=== PATIENT | female | born 1965 | race Caucasian/White ===

== ENCOUNTER 2018-11-23 00:40 | Inpatient (IN) | payer OTHER ==
[2018-11-23 01:27] LABS: ALT (SGPT) 23 U/L (8-55); AST (SGOT) 29 U/L (5-34); Albumin 4.1 g/dL (3.5-5.0); Alkaline Phosphatase 89 U/L (40-110); Anion Gap 19 mmol/L (10-20); BUN (Urea Nitrogen) 12 mg/dL (9.8-20.1); Bilirubin, Total 0.6 mg/dL (0.2-1.2); Calc. Creatinine Clearance 0 mL/min (70-130); Carbon Dioxide 16 mmol/L (22-29); Chloride 104 mmol/L (98-107); Estimated GFR-MDRD 50; Globulin 2.7 g/dL (2.4-3.5); Glucose 271 mg/dL (70-105); Potassium 3.8 mmol/L (3.5-5.1); Protein, Total 6.8 g/dL (6.0-8.3); Sodium 135 mmol/L (136-145)
[2018-11-23] MEDS ORDERED: Ondansetron PF 4 MG/2 ML Vial ONE (01:56)
[2018-11-23] MEDS ORDERED: Ondansetron ODT 4 MG TAB SL PRN (04:09)
[2018-11-23] MEDS ORDERED: Ondansetron PF 4 MG/2 ML Vial IVP PRN (04:09)
[2018-11-23 04:34] VITALS: BMI 29.5
[2018-11-23] MEDS ORDERED: Sodium Chloride 0.9% 1,000 ML IV SCH (07:00)
[2018-11-23] MEDS ORDERED: Dextrose 50% Abboject 50 ML SYRINGE SLOW IVP PRN ×2 (07:39→16:43)
[2018-11-23] MEDS ORDERED: Dextrose 5% in Water 1,000 ML IV PRN (07:39)
[2018-11-23] MEDS ORDERED: NS 0.9% w/ 20 MEQ KCL 1,000 ML IV SCH (08:00)
[2018-11-23] MEDS: NS 0.9% w/ 20 MEQ KCL 1,000 ML/1,000 ML BAG IV SCH ×2 (08:33→16:22)
[2018-11-23] MEDS: Enoxaparin Sodium 30 MG/0.3 ML SYRINGE SC SCH (08:33)
[2018-11-23 09:35] LABS: Anion Gap 19 mmol/L (10-20); BUN (Urea Nitrogen) 11 mg/dL (9.8-20.1); Calc. Creatinine Clearance 78 mL/min (70-130); Carbon Dioxide 12 mmol/L (22-29); Chloride 102 mmol/L (98-107); Estimated GFR-MDRD 50; Glucose 317 mg/dL (70-105); Potassium 3.7 mmol/L (3.5-5.1); Sodium 129 mmol/L (136-145)
--- NOTE | 2018-11-23 12:13 | ULT ---
ABDOMINAL ULTRASOUND: Date: 11/23/18 HISTORY: Abdominal pain. FINDINGS: Real-time imaging of the upper abdomen shows echogenic foci with shadowing within the gallbladder com patible with small stones. Common duct is 4 mm. The liver shows increased echogenicity with areas of focal fatty sparing adjacent to the gallbladder. The spleen measures 11 cm. Right and left kidneys are within normal limits of size and not obstructed. The pancreas is obscured. Abdominal aorta and IVC regions appear unremarkable. IMPRESSION: 1. Technically difficult examination due to patient cooperation and bowel gas. 2. Multiple cholelithiasis with a normal caliber common duct. 3. Fatty change of the liver, with a spleen which is upper limits of normal in size. POS: [facility]
[2018-11-23] MEDS: Promethazine HCl 12.5 MG in Sodium Chloride 0.9% 50 ML IVPB PRN ×2 (12:52→19:46)
--- NOTE | 2018-11-23 13:32 | HP ---
CHIEF COMPLAINTS: Nausea, vomiting, and diarrhea. HISTORY OF PRESENT ILLNESS: The patient is a 53-year-old female, who was seen by [facility] in [place] yesterday for 5-day history of nausea, vomiting, and diarrhea. Apparently, she stopped taking her diabetic medications long time ago, more than 6 months. She was still taking her other medications, but she stopped taking all diabetic medications. She was on pills. She was not on any insulin before that. She complained about some chills, but no fever. She had diarrhea. No blood in her stool. She had some abdominal pain, but this was mainly in the epigastric area and related to her vomiting most likely, she said. She received 10 units of insulin and IV fluids in both emergency rooms in [place] and [facility] in [place]. Her anion gap was up to 27 and on the last BMP, it is 19. She still has some nausea and vomiting. PAST MEDICAL HISTORY: 1. Diabetes mellitus type 2. 2. Gastroesophageal reflux disease. 3. Fibromyalgia. 4. Bipolar disorder. SURGICAL HISTORY: 1. Endometriosis surgeries. 2. Appendectomy. 3. Hysterectomy. 4. Gastric sleeve surgery. SOCIAL HISTORY: She drinks 3 to 4 drinks, probably 3 to 4 times per week. She uses marijuana when the muscle pain gets to the point that she can not handle her pain anymore, sometimes it is daily. She does not use any cigarettes. She does not use any other drugs. FAMILY HISTORY: Mother of [place] when she was 65. Father is still alive. He had heart transplant. ALLERGIES: NONE. CURRENT MEDICATIONS: The patient does not know her medications. We are going to contact her primary care physician, Dr. Robles from [place] to find out what she is taking. REVIEW OF SYSTEMS: All 14 systems were reviewed and they are negative except for those symptoms mentioned in HPI. PHYSICAL EXAMINATION: VITAL SIGNS: Blood pressure is 163/84, pulse is 68, temperature is 97.8, respirations 16, O2 saturation is 99. HEENT: Head is atraumatic and normocephalic. Eyes are PERRLA. Sclerae are nonicteric. Oral mucosa is dry. NECK: Supple. LUNGS: Clear. HEART: S1, S2 normal. ABDOMEN: Soft. Slightly tender in the epigastric area. No guarding. No masses. EXTREMITIES: No clubbing, cyanosis, or edema. NEUROLOGICAL EXAMINATION: She follows my commands. She moves all 4 extremities. There is no any sensory or motor deficits present. Cranial nerves are intact. LABORATORY DATA: Showed sodium of 135, potassium 3.8, chloride 104, CO2 16, BUN is 12, creatinine 1.13, glucose 271, and glycemia is ranging from 253 to 268. The rest of chemistry is within normal limits. CBC within normal limits. Urinalysis showed 100 of protein, 500 of glucose,, more or equal 80 of ketones, moderate of blood, moderate of bilirubin, RBCs 4 to 6, granular casts usually is 0 to 3. Her blood gas showed venous blood, pCO2 18.6, PO2 37.8, base excess -10.7, AST 35, ALT 30, alkaline phosphatase 113, lipase 19. Troponin I less than 0.010. Her previous creatinine from [place] was 1.35, and potassium was 3.1. IMPRESSION: 1. Diabetic ketoacidosis. 2. Diarrhea with fever. We will check her for any infectious etiology of that. 3. Renal insufficiency, most likely prerenal because it is improving with IV fluids so far. 4. Bipolar disorder. 5. Drug abuser. 6. Fibromyalgia. 7. Hypokalemia, corrected. PLAN: We are going to admit her to full admission medical floor. Condition is fair. Activity, bedrest and bathroom privileges. IV fluids with normal saline with KCl 20 mEq/L at 150 mL/h. Accu-Cheks every 4 hours. Moderate sliding scale. Comp every 4 hours x2. Zofran p.r.n. as needed. Phenergan p.r.n. as needed for nausea and vomiting. We will find out her home medications she is taking at home by calling doctor's office. We will keep her on fluids and monitor her progress. She will be on DVT prophylaxis with SCDs and heparin. Job ID: [id number]
[2018-11-23 13:57] LABS: Anion Gap 18 mmol/L (10-20); BUN (Urea Nitrogen) 11 mg/dL (9.8-20.1); Calc. Creatinine Clearance 83 mL/min (70-130); Calcium 8.5 mg/dL (7.8-10.44); Carbon Dioxide 10 mmol/L (22-29); Chloride 108 mmol/L (98-107); Estimated GFR-MDRD 54; Glucose 299 mg/dL (70-105); Potassium 4.3 mmol/L (3.5-5.1); Sodium 132 mmol/L (136-145)
[2018-11-23] MEDS ORDERED: Sodium Chloride 0.9% 1,000 ML IV PRN ×4 (16:35)
[2018-11-23] MEDS ORDERED: Dextrose 5 %-0.45 % NaCl 1,000 ML IV PRN (16:35)
[2018-11-23] MEDS ORDERED: NS 0.9% w/ 20 MEQ KCL 1,000 ML/1,000 ML BAG IV PRN ×2 (16:35)
[2018-11-23] MEDS ORDERED: Calcium Carbonate 500 MG TAB PO PRN (16:44)
[2018-11-23] MEDS ORDERED: Magnesium 2 GM/50 ML 2 GM in Premix Bag 1 BAG IVPB SCH (16:44)
[2018-11-23] MEDS ORDERED: PHOS-NAK 1 PKT PACK PO PRN ×2 (16:44)
[2018-11-23] MEDS ORDERED: NON-CRITICAL ELECTROLYTE REPLACEMENT PROTOCOL FS PRN (16:44)
[2018-11-23] MEDS ORDERED: Magnesium Oxide 400 MG TAB PO PRN ×2 (16:44)
[2018-11-23] MEDS ORDERED: Potassium Chloride 40 MEQ in Premix Bag 1 BAG IVPB PRN (16:45)
[2018-11-23] MEDS ORDERED: Potassium Chloride 20 MEQ in Premix Bag 1 BAG IVPB PRN (16:45)
[2018-11-23] MEDS ORDERED: HUMULIN R 100 UNITS in Sodium Chloride 0.9% 100 ML IVPB SCH (16:45)
[2018-11-23] MEDS ORDERED: ADD ELECTROLYTE REPLACEMENT SET TO PROFILE FS SCH (16:45)
[2018-11-23] MEDS ORDERED: Potassium Chloride 20 MEQ TAB PO PRN (16:45)
[2018-11-23] MEDS ORDERED: Calcium Gluconate 9.2 MEQ in Sodium Chloride 0.9% 100 ML IVPB PRN (16:45)
[2018-11-23] MEDS ORDERED: Insulin Regular 300 UNITS/3 ML VIAL IVP SCH (16:45)
[2018-11-23] MEDS ORDERED: Potassium Phosphate 9 MMOL in Sodium Chloride 0.9% 100 ML IVPB PRN (16:46)
[2018-11-23] MEDS ORDERED: Potassium Phosphate 15 MMOL in Sodium Chloride 0.9% 250 ML 250 ML IVPB PRN (16:46)
[2018-11-23] MEDS ORDERED: Potassium Phosphate 12 MMOL in Sodium Chloride 0.9% 100 ML IVPB PRN (16:46)
[2018-11-23 20:16] LABS: Anion Gap 14 mmol/L (10-20); BUN (Urea Nitrogen) 10 mg/dL (9.8-20.1); Calc. Creatinine Clearance 100 mL/min (70-130); Calcium 8.9 mg/dL (7.8-10.44); Carbon Dioxide 12 mmol/L (22-29); Chloride 111 mmol/L (98-107); Estimated GFR-MDRD 67; Glucose 142 mg/dL (70-105); Potassium 3.3 mmol/L (3.5-5.1); Sodium 134 mmol/L (136-145)
[2018-11-23] MEDS: D5 1/2 NS w/20 mEq KCL 1,000 ML IV PRN (22:22)
[2018-11-23] MEDS: Potassium Chloride 20 MEQ in Premix Bag 1 BAG IVPB PRN (22:25)
[2018-11-23] MEDS ORDERED: Promethazine HCl 25 MG/ML VIAL IM/IV PRN (23:07)
[2018-11-23] MEDS ORDERED: diphenhydrAMINE 50 MG/ML VIAL IVP PRN (23:08)
[2018-11-24] MEDS: NS 0.9% w/ 20 MEQ KCL 1,000 ML/1,000 ML BAG IV SCH ×4 (00:25→15:03)
[2018-11-24 00:26] LABS: Anion Gap 14 mmol/L (10-20); BUN (Urea Nitrogen) 8 mg/dL (9.8-20.1); Calc. Creatinine Clearance 98 mL/min (70-130); Calcium 8.8 mg/dL (7.8-10.44); Carbon Dioxide 12 mmol/L (22-29); Chloride 113 mmol/L (98-107); Estimated GFR-MDRD 65; Glucose 190 mg/dL (70-105); Potassium 3.6 mmol/L (3.5-5.1); Sodium 135 mmol/L (136-145)
[2018-11-24] MEDS: Potassium Chloride 20 MEQ in Premix Bag 1 BAG IVPB PRN (01:10)
[2018-11-24] MEDS ORDERED: diphenhydrAMINE 50 MG/ML VIAL ONE (02:52)
[2018-11-24] MEDS: D5 1/2 NS w/20 mEq KCL 1,000 ML IV PRN ×2 (03:10→08:47)
[2018-11-24] MEDS: Promethazine HCl 12.5 MG in Sodium Chloride 0.9% 50 ML IVPB PRN ×2 (03:11→08:48)
[2018-11-24 07:11] LABS: Anion Gap 12 mmol/L (10-20); BUN (Urea Nitrogen) 7 mg/dL (9.8-20.1); Calc. Creatinine Clearance 90 mL/min (70-130); Calcium 9.1 mg/dL (7.8-10.44); Carbon Dioxide 16 mmol/L (22-29); Chloride 112 mmol/L (98-107); Estimated GFR-MDRD 63; Glucose 192 mg/dL (70-105); Potassium 3.9 mmol/L (3.5-5.1); Sodium 136 mmol/L (136-145)
[2018-11-24 08:33] LABS: #Lymphocytes 2.3 thou/uL (1.20-3.40); #Monocytes 0.4 thou/uL (0.11-0.59); #Neutrophils 3.8 thou/uL (1.40-6.50); %Basophils 0.6 % (0.0-1.0); %Eosinophils 0.2 % (0.0-10.0); %Lymphocytes 35.1 % (21.0-51.0); %Monocytes 5.7 % (0.0-10.0); %Neutrophils 58.4 % (42.0-75.0); Hemoglobin 12.9 g/dL (12.0-16.0); Mean Corpuscular HGB CONC 35.3 g/dL (32.0-36.0); Mean Corpuscular Volume 90.5 fL (78.0-98.0); Mean Platelet Volume 7.1 fL (7.4-10.4); Platelet Count 199 thou/uL (130-400); RBC Distribution Width 13.3 % (11.5-14.5); Red Blood Cell (RBC) Count 4.05 mill/uL (4.20-5.40); White Blood Cell (WBC) Count 6.5 thou/uL (4.8-10.8)
[2018-11-24] MEDS: Enoxaparin Sodium 30 MG/0.3 ML SYRINGE SC SCH (08:47)
--- NOTE | 2018-11-24 08:53 | PRG ---
DATE OF SERVICE: 11/24/2018 SUBJECTIVE: The patient is seen and examined at the bedside. She is still nauseated and has some vomiting last night. She has some abdominal pain, but she thinks this is most likely from her vomiting. OBJECTIVE: VITAL SIGNS: Blood pressure is 167/97, pulse is 62, respiratory rate is 13, O2 saturation is good. HEENT: Head is atraumatic and normocephalic. Sclerae are nonicteric. Conjunctivae are pinkish. Oral mucosa is dry. NECK: Supple. LUNGS: Clear. HEART: S1, S2 normal. No S3. No S4. ABDOMEN: Soft. Mildly tender in the midportion of the abdomen. No guarding. No masses. EXTREMITIES: No clubbing, cyanosis, or edema. NEUROLOGICAL: She follows my commands. She moves all 4 extremities. There is no motor or sensory deficits. LABORATORY DATA: Labs showed sodium of 136, potassium 3.9, chloride 112, CO2 16, anion gap 12, BUN of 7, creatinine of 0.92, glucose 192. Glycemia is ranging from 128 to 204, calcium is 9.1. IMAGING: Abdominal ultrasound showed cholelithiasis with normal caliber common duct and fatty change of the liver. This was difficult study. IMPRESSION: 1. Diabetic ketoacidosis, improved in terms of acidity in the body. 2. Persistent nausea and vomiting, most likely related to #1. We will do the CT of the abdomen with and without contrast since the ultrasound showed some cholelithiasis with normal common bile duct. 3. Bipolar disorder. I am holding her home medications since she still has nausea and vomiting. 4. Fibromyalgia. PLAN: I am going to obtain CBC, get GI consult with Dr. Suarez, get CT scan of the abdomen with and without contrast, and continue her p.r.n. antiemetics, and we are going to decrease the IV fluids to 125 mL/hour of D5 water and we will decrease the insulin drip to 1 to 2 units just to keep her on small dose of insulin and we will check on her after she has had a CT scan today. Job ID: [id number]
[2018-11-24] MEDS ORDERED: Lidocaine 2% PF 5 ML VIAL ONE (10:05)
[2018-11-24] MEDS ORDERED: Succinylcholine Chloride 20 MG/ML 10 ml SYRINGE FS ONE (10:05)
[2018-11-24] MEDS ORDERED: Ondansetron PF 4 MG/2 ML Vial ONE (10:05)
[2018-11-24] MEDS ORDERED: PROPOFOL 200 MG/20 ML VIAL ONE (10:05)
[2018-11-24] MEDS ORDERED: Dexamethasone 20 MG/5 ML VIAL ONE (10:05)
--- NOTE | 2018-11-24 10:10 | CON ---
DATE OF CONSULTATION: 11/24/2018 REASON FOR CONSULTATION: [facility] [place] protocol. HISTORY OF PRESENT ILLNESS: This is a 53-year-old female, who was hospitalized 2 nights ago with a one-week history of nausea, vomiting, and diarrhea. She has been treated as if she has DKA. She initially did not have much of a gap, but did develop a gap shortly after admission that is now closed. She continues on insulin drip. She is actually a type 2 diabetic. She has been off all of her diabetes medications including metformin for at least 6 months. She does not know of any people around there who have been sick with any type of gastrointestinal illness. She is not taking any antibiotics. She has not had any travel. PAST MEDICAL HISTORY: 1. Diabetes mellitus, type 2. 2. Fibromyalgia. 3. Bipolar disorder. 4. Obesity. PAST SURGICAL HISTORY: 1. She has had a gastric sleeve 3 years ago. 2. Endometriosis surgery x2. 3. Hysterectomy. 4. Appendectomy. SOCIAL HISTORY: She drinks 3 to 4 glasses of bourbon 3 to 4 times a week. She uses marijuana occasionally. She does not smoke cigarettes. Does not use any other illicit drugs. She does not work. She lives near [place]. FAMILY MEDICAL HISTORY: Remarkable for heart disease. ALLERGIES: NONE. MEDICATIONS: Prior to admission, she has been off almost everything except for her bipolar medication. The specific medications listed in the outpatient medication list include; 1. Trazodone. 2. Escitalopram. 3. Ativan. 4. Seroquel. 5. Zanaflex. 6. Omeprazole. REVIEW OF SYSTEMS: Remarkable for nausea, vomiting, diarrhea, and pain on side of her neck. PHYSICAL EXAMINATION: VITAL SIGNS: Temperature is 97.0, pulse 62, blood pressure 167/97, and O2 saturation not listed. GENERAL: She does not appear to be in much distress when I saw her. HEENT: Unremarkable. NECK: No adenopathy, JVD, or bruits. LUNGS: Clear to auscultation. CARDIAC: S1 and S2, regular without audible murmur. ABDOMEN: Soft, nontender to deep palpation. EXTREMITIES: No clubbing, cyanosis, or edema. LABORATORY DATA: White blood cell count 6.5, hematocrit 36, and platelet count 199. Sodium 136, potassium 3.9, chloride 112, CO2 of 16, BUN 7, creatinine 0.9, and glucose 192. Beta-hydroxybutyrate is normalized at this point. IMAGING DATA: Abdominal CT scan result is pending. The abdominal ultrasound demonstrated cholelithiasis with normal caliber common bile duct. ASSESSMENT: 1. Gastroenteritis. 2. Starvation ketosis. 3. Diabetic ketoacidosis. PLAN: I reviewed the hospitalist note. Agree with GI consultation. Agree with current management. Job ID: [id number]
--- NOTE | 2018-11-24 10:11 | CT ---
CT ABDOMEN AND PELVIS: Date: 04/26/18 COMPARISON: None. HISTORY: Persistent vomiting for a few days. TECHNIQUE: Axial CT imaging at 5 mm intervals from the lung bases through the pubic symphysis with IV contrast. Coronal and sagittal reformatted imaging obtained. FINDINGS: The visualized lung bases appear unremarkable. There is a small sliding-type hiatal hernia present. T here is a gastric suture line noted. No free intraperitoneal air or fluid. Uterus appears surgically absent. There is diffuse hepatic hypodensity suggesting steatosis. There is mild increased density within the gallbladder, which may signify noncalcified stones or slud ge. Spleen, pancreas, adrenal glands, and kidneys demonstrate no acute findings. Limited assessment of the bowel without oral contrast media demonstrates no evidence for inflammatory change or obstruction. The vascular structures of the abdomen/pelvis appear patent. No enlarged lymph nodes are seen within the abdomen/pelvis. Osseous structures demonstrate no acute findings. IMPRESSION: 1. Findings suggesting hepatic steatosis. 2. Small hiatal hernia. 3. Postoperative changes as described above. 4. No free intraperitoneal air or fluid. 5. No evidence for bowel obstruction. POS: OFF
[2018-11-24] MEDS ORDERED: Dextrose 50% Abboject 50 ML SYRINGE IVP PRN (10:53)
[2018-11-24] MEDS ORDERED: Dextrose 5% in Water 1,000 ML IV PRN (10:53)
[2018-11-24] MEDS ORDERED: Insulin Glargine 20 UNITS in Pre-Filled Syringe 1 EACH SC SCH (11:00)
[2018-11-24] MEDS: Dextrose 5% in Water 1,000 ML IV PRN ×2 (11:54→17:01)
[2018-11-24] MEDS ORDERED: ISOVUE-370 76%-LOCM 1 ML ONE (12:04)
[2018-11-24] MEDS: Metoclopramide HCl 10 MG/2 ML VIAL IVP SCH ×2 (14:36→21:15)
[2018-11-24] MEDS ORDERED: Sodium Chloride For Inhalation 0.9% 3 ML NEB ONE (16:13)
[2018-11-24] MEDS: HumaLOG 300 UNITS/3 ML VIAL SC PRN (17:42)
[2018-11-24] MEDS ORDERED: hydrALAZINE 20 MG/ML VIAL SLOW IVP PRN (17:42)
[2018-11-24] MEDS ORDERED: Amlodipine 5 MG TAB PO SCH (17:45)
[2018-11-24] MEDS ORDERED: tiZANidine HCl 4 MG TAB PO PRN (17:47)
[2018-11-24] MEDS: Sodium Chloride 0.45% 1,000 ML IV SCH (18:02)
--- NOTE | 2018-11-24 18:16 | OP ---
DATE OF PROCEDURE: 11/24/2018 PROCEDURE PERFORMED: Esophagogastroduodenoscopy. PREOPERATIVE DIAGNOSES: A 53-year-old female diabetes mellitus, diabetic ketoacidosis, persistent nausea, vomiting, and diarrhea. The patient has had an abdominal sonogram, which showed gallstone, but no evidence of cholecystitis. Also has fatty liver. The patient was responding to Zofran with continued nausea and vomiting. The patient underwent esophagogastroduodenoscopy. POSTOPERATIVE DIAGNOSES: 1. Previous gastric sleeve surgery. 2. Small gastric polyp biopsy. 3. Normal duodenum. DESCRIPTION OF PROCEDURE: The patient was intubated and was given sedation by Anesthesia Department. A Pentax video gastroscope under direct vision passed down the oropharynx, past the GE junction into the stomach and subsequently into the descending duodenum. The esophageal mucosa appeared normal. No esophagitis or any abnormal findings seen. In the GE junction, no pathology seen. The patient has had previous gastric sleeve surgery. The stomach gastric body, antrum, not biopsied. The pylorus was wide open. The duodenal bulb, descending duodenum, no pathology seen. The stomach decompressed and the scope removed. RECOMMENDATIONS: 1. IV Reglan. 2. Clear liquid diet. 3. Symptomatic treatment. Job ID: [id number]
--- NOTE | 2018-11-24 18:31 | CON ---
DATE OF CONSULTATION: 11/24/2018 REASON FOR CONSULTATION: Persistent nausea, vomiting, and diarrhea. HISTORY OF PRESENT ILLNESS: Ms. Chen Magallon is a very pleasant 53-year-old female, hospitalized yesterday with nausea, vomiting, and diarrhea. She went to [facility] and was transferred here. The patient is known to have diabetes mellitus and is very poorly compliant with medicine intake. Apparently, she was taking 6 months ago. The patient has had no polyuria, polydipsia, or any other symptoms. The patient developed nausea, vomiting, and diarrhea on Tuesday, 5 days ago. She has severe . The vomiting is not that often. She had no vomiting today, but she symptoms nauseous and gagging and retching. The patient had no similar episodes in the past. The patient is status post gastric sleeve surgery in [place] 3 years ago. She says she lost about 100 pounds after the surgery. However, now she has been slowly gaining weight, that she is gaining up to 10 pounds. The patient has no prior history of peptic ulcer disease. No history of any dysphagia or odynophagia. Does have chronic acid reflux over the years. The patient denies taking any aspirin or any NSAID medication. She does drink alcohol at least 3 to 4 times per week, 3 to 4 drinks. She had abdominal CAT sonogram done. The sonogram shows fatty liver and also multiple gallstones. There is no thickening of gallbladder wall. This is an incidental finding. She also had abdominal CAT scan with IV contrast this morning. The results are pending at the present time. She has minimal abdominal discomfort over the epigastric area. The pain is really not very severe. No similar episodes in the past. The diarrhea started about 5 days ago and the stools are watery. She has had couple of stools today. She does not remember how many stools exact on every day. No hematochezia or melena. No recent antibiotic intake or recent travel. When she went to the [facility], she was found to have hyperglycemia with blood sugar around 400. She got subcutaneous insulin and was transferred here. Since admission to the hospital here, her blood sugar have been running reasonably well in the range of close BUN and creatinine is normal. No relevant history. ALLERGIES: NONE. SOCIAL HISTORY: The patient smokes marijuana for fibromyalgia. No history of any smoking. No history of any drug use. History of alcohol intake, 3 to 4 drinks, 3 to 4 times per week. MEDICAL ILLNESSES: 1. Type 2 diabetes mellitus. 2. Chronic acid reflux. 3. Fibromyalgia. 4. Bipolar disorder. PAST SURGICAL HISTORY: 1. History of multiple endometriosis surgeries. 2. Appendectomy. 3. Hysterectomy. 4. Gastric sleeve surgery 3 years ago. FAMILY HISTORY: Her mother of [place]. Her father had a heart transplant and is alive and healthy. MEDICATIONS: List reviewed. REVIEW OF SYSTEMS: Ten-point system review: CONSTITUTIONAL: No history of fever. No weight loss. Exercise tolerance is very good. HEENT: No chronic headache. No diplopia. No impaired vision. No hearing loss. No sore throat. No nosebleeds. NECK: No stiffness on limited movement. LUNGS: History of bronchitis off and on and has mild coughing. No hemoptysis. No dyspnea. CARDIOVASCULAR SYSTEM: No chest pain. No dyspnea, palpitation, orthopnea, or PND. GASTROINTESTINAL: As in History of Present Illness. GENITOURINARY: No dysuria, hematuria, or frequent urination. MUSCULOSKELETAL: She has some back pain and muscle pain. PHYSICAL EXAMINATION: GENERAL: She is awake, alert, and communicative. She is a good historian. VITAL SIGNS: Actually stable. Afebrile, pulse is 62, and blood pressure is 167/97. HEENT: Conjunctivae are clear. NECK: Supple. No adenitis or thyromegaly noted. CARDIOVASCULAR SYSTEM: First and second heart sounds heard. LUNGS: Clear to auscultation. ABDOMEN: Soft and nondistended. She is minimally tender over the epigastric area . She is nontender over the right upper quadrant. There is no rebound or guarding. She has active bowel sounds. EXTREMITIES: Reveal no edema. LABORATORY DATA: Dated 11/23/2018 shows normal lytes, sodium is 132, BUN is 11, creatinine is 1.06, glucose 299 yesterday, but today is now around 108 this morning. The maximum blood sugar in the hospital is around 318 yesterday. The calcium level is normal at 8.5. Liver function tests are normal. Bilirubin is 0.6, alkaline phosphatase 89, albumin is 4.1. CBC; WBC is , hemoglobin 12.9, hematocrit is 36.6, MCV 90.5, platelet count is 199,000, polymorphs 68, lymphocytes 35. IMAGING DATA: An abdominal sonogram shows fatty liver and multiple gallstones and CBD is at 4 mm. CLINICAL IMPRESSION: 1. A 53-year-old female with poorly compliant with medicine intake with history of diabetes mellitus. She presents to [place] with hyperglycemia, but not very severe. After 10 units of insulin, blood sugar has dropped down. She is still hyperglycemic, but really not that severe. not sure whether she has actually diabetic ketoacidosis. 2. No evidence of volume depletion, although she has history of diabetic ketoacidosis on remission. 3. Persistent nausea and vomiting. Possible gastroparesis . 4. Gallstone is asymptomatic. 5. Fatty liver. 6. Chronic acid reflux. 7. Fibromyalgia. 8. Bipolar disorder. RECOMMENDATIONS: 1. Consider starting the patient on IV Reglan 10 mg q.6 hours. 2. I will plan for EGD later on today to look for other cause of nausea and vomiting. I will make further recommendation after EGD. Job ID: [id number]
[2018-11-24] MEDS ORDERED: diphenhydrAMINE 50 MG/ML VIAL IVP SCH (19:00)
[2018-11-24] MEDS: traZODone HCl 150 MG TAB PO SCH (21:15)
[2018-11-24] MEDS: Lorazepam 1 MG TAB PO SCH (21:15)
[2018-11-25] MEDS: Metoclopramide HCl 10 MG/2 ML VIAL IVP SCH ×2 (05:10→14:50)
[2018-11-25 05:37] LABS: #Basophils 0.1 thou/uL (0.0-0.2); #Lymphocytes 2.7 thou/uL (1.20-3.40); #Monocytes 0.4 thou/uL (0.11-0.59); #Neutrophils 2.8 thou/uL (1.40-6.50); %Basophils 0.9 % (0.0-1.0); %Eosinophils 0.7 % (0.0-10.0); %Lymphocytes 45.5 % (21.0-51.0); %Monocytes 6.5 % (0.0-10.0); %Neutrophils 46.4 % (42.0-75.0); Hemoglobin 12.5 g/dL (12.0-16.0); Mean Corpuscular HGB CONC 35.8 g/dL (32.0-36.0); Mean Corpuscular Hemoglobin 31.5 pg (27.0-31.0); Mean Corpuscular Volume 87.8 fL (78.0-98.0); Mean Platelet Volume 7.1 fL (7.4-10.4); Platelet Count 171 thou/uL (130-400); RBC Distribution Width 13.1 % (11.5-14.5); Red Blood Cell (RBC) Count 3.98 mill/uL (4.20-5.40)
[2018-11-25 06:01] LABS: Anion Gap 13 mmol/L (10-20); BUN (Urea Nitrogen) 6 mg/dL (9.8-20.1); Calc. Creatinine Clearance 85 mL/min (70-130); Calcium 8.7 mg/dL (7.8-10.44); Carbon Dioxide 17 mmol/L (22-29); Chloride 107 mmol/L (98-107); Estimated GFR-MDRD 60; Glucose 241 mg/dL (70-105); Magnesium 1.4 mg/dL (1.6-2.6); Sodium 134 mmol/L (136-145)
[2018-11-25 06:04] LABS: Potassium 2.9 mmol/L (3.5-5.1)
[2018-11-25] MEDS: HumaLOG 300 UNITS/3 ML VIAL SC PRN ×2 (06:29→18:12)
[2018-11-25] MEDS: Amlodipine 5 MG TAB PO SCH (08:39)
[2018-11-25] MEDS: Enoxaparin Sodium 30 MG/0.3 ML SYRINGE SC SCH (08:40)
[2018-11-25] MEDS: diphenhydrAMINE 50 MG CAP PO SCH (08:40)
[2018-11-25] MEDS: Lorazepam 1 MG TAB PO SCH ×3 (08:40→21:08)
[2018-11-25] MEDS: Escitalopram Oxalate 20 mg Tablet PO SCH (08:40)
[2018-11-25] MEDS: Sodium Chloride 0.45% 1,000 ML IV SCH (08:55)
--- NOTE | 2018-11-25 09:12 | PRG ---
DATE OF SERVICE: 11/25/2018 SUBJECTIVE: Ms. Chen Magallon is a 53-year-old female hospitalized with nausea and vomiting over the last several days. The patient has undergone abdominal sonogram, CAT scan, and EGD. to explain the nausea and vomiting. She is on IV Reglan since yesterday. Since last night, her symptoms markedly improved. She appears very comfortable. She is not gagging or retching. She is tolerating clear liquid diet without any problems. She has no abdominal pain. LABORATORY DATA: Shows normal CBC, hemoglobin 12.5, hematocrit 34.9. Chemistry panel shows potassium of 2.9, glucose is 227, calcium is 8.7. OBJECTIVE: GENERAL: Appears very comfortable. VITAL SIGNS: Stable. Temperature is 98.1 degrees Fahrenheit, pulse is 84, blood pressure is 164/91. CARDIOVASCULAR AND LUNGS: Within normal limits. ABDOMEN: Soft. No organomegaly. No tenderness. No masses. RECOMMENDATION: 1. Advance diet to 1800 ADA diet. 2. Replace potassium. 3. Continue IV Reglan. Job ID: [id number]
--- NOTE | 2018-11-25 10:56 | PRG ---
DATE OF SERVICE: 11/25/2018 SUBJECTIVE: The patient feels much better. She is up in a chair. She has not had any vomiting since yesterday afternoon. OBJECTIVE: VITAL SIGNS: Temperature is 98.1, pulse 84, blood pressure 164/91. Intake for 24 hours 2875, output 3700. HEENT: Unremarkable. NECK: No adenopathy or JVD. CHEST: Clear. CARDIAC: S1, S2. Regular. ABDOMEN: Soft, nontender. EXTREMITIES: No edema. LABORATORY DATA: White blood cell count 6, hematocrit 34.9, and platelet count 171. Sodium 134, potassium 2.9, BUN 6, creatinine 0.9, magnesium 1.4. ASSESSMENT: Gastroenteritis, which appears to be improving. PLAN: She can transfer out to the floor, electrolytes being replaced. No further ICU recommendations. We will sign off. Job ID: [id number]
[2018-11-25 11:10] LABS: Anion Gap 13 mmol/L (10-20); BUN (Urea Nitrogen) 5 mg/dL (9.8-20.1); Calc. Creatinine Clearance 80 mL/min (70-130); Calcium 9.2 mg/dL (7.8-10.44); Carbon Dioxide 17 mmol/L (22-29); Chloride 106 mmol/L (98-107); Estimated GFR-MDRD 56; Glucose 242 mg/dL (70-105); Potassium 3.3 mmol/L (3.5-5.1); Sodium 133 mmol/L (136-145)
--- NOTE | 2018-11-25 12:02 | PRG ---
DATE OF SERVICE: 11/25/2018 SUBJECTIVE: The patient is seen and examined at bedside. She had her EGD done yesterday and she has significantly improved. She is able to tolerate clear liquids without any vomiting, although she still has some nausea on and off. OBJECTIVE: VITAL SIGNS: Blood pressure is 147/118, pulse is 104, respiratory rate is 18, O2 saturation is 93% on room air. HEENT: Her head is atraumatic, normocephalic. Sclerae are nonicteric. Oral mucosa LUNGS: Clear. HEART: S1, S2. Somewhat irregular. No S3. No S4. ABDOMEN: Soft, nontender, mildly distended. EXTREMITIES: No clubbing, cyanosis, or edema. NEUROLOGICAL: She follows my commands. She moves all 4 extremities. LABORATORY DATA: Labs showed white count of 6.0, hemoglobin 12.5, hematocrit 34.9, platelet count is 171,000. Her sodium 134, potassium 2.9, chloride 107, CO2 is 17, creatinine 0.97, glucose 241. Glycemia is ranging from 183 to 240, calcium is 9.2, magnesium is 1.4. Beta hydroxybutyrate 0.12. IMPRESSION: 1. Diabetic ketoacidosis. 2. Persistent nausea and vomiting, felt to be related to acute gastroenteritis versus #1, improved. 3. Cholelithiasis with normal common bile duct on the last imaging of the abdomen. 4. Bipolar disorder. 5. Hypokalemia for replacement of potassium, and hypomagnesemia for magnesium replacement. 6. Diabetes mellitus type 2. PLAN: Plan is to replace her magnesium and potassium based on magnesium and potassium replacement protocol. We will wait until executive personal assistant advance her diet, and she can be moved out to the floor later today when her potassium is replaced. Her CO2 is still running on the lower side. I think this could be related to maybe renal tubular acidosis. We will check her urine. Job ID: [id number]
[2018-11-25 13:05] LABS: Bilirubin Negative (Negative); Blood, Urine Negative (Negative); Clarity Clear (Clear); Glucose, Urine (Dipstick) 500 mg/dL (Negative); Leukocyte 250 Leu/uL (Negative); Nitrite Negative (Negative); Protein, Urine (Dipstick) Negative (Neg-Trace); Urobilinogen Normal mg/dL (Less than 2)
[2018-11-25] MEDS ORDERED: glipiZIDE 5 MG TAB PO SCH (18:15)
[2018-11-25] MEDS ORDERED: Dextrose 5% in Water 1,000 ML IV PRN (18:29)
[2018-11-25] MEDS: traZODone HCl 150 MG TAB PO SCH (21:09)
[2018-11-25] MEDS: Metoclopramide HCl 10 MG TAB PO SCH (21:09)
[2018-11-25] MEDS ORDERED: Metoclopramide HCl 10 MG TAB PO SCH (22:00)
[2018-11-26 06:11] LABS: Anion Gap 14 mmol/L (10-20); BUN (Urea Nitrogen) 10 mg/dL (9.8-20.1); Calc. Creatinine Clearance 85 mL/min (70-130); Carbon Dioxide 18 mmol/L (22-29); Chloride 107 mmol/L (98-107); Estimated GFR-MDRD 60; Glucose 149 mg/dL (70-105); Magnesium 1.7 mg/dL (1.6-2.6); Potassium 3.3 mmol/L (3.5-5.1); Sodium 136 mmol/L (136-145)
[2018-11-26 06:25] LABS: Phosphorus 4.9 mg/dL (2.3-4.7)
[2018-11-26] MEDS: glipiZIDE 5 MG TAB PO SCH ×2 (06:36→16:55)
[2018-11-26] MEDS: Metoclopramide HCl 10 MG TAB PO SCH ×3 (06:37→20:59)
[2018-11-26] MEDS: HumaLOG 300 UNITS/3 ML VIAL SC PRN ×2 (06:42→12:56)
[2018-11-26] MEDS ORDERED: Potassium Chloride 20 MEQ TAB PO SCH (07:30)
[2018-11-26] MEDS: Amlodipine 5 MG TAB PO SCH (08:45)
[2018-11-26] MEDS: Escitalopram Oxalate 20 mg Tablet PO SCH (08:45)
[2018-11-26] MEDS: Lorazepam 1 MG TAB PO SCH ×3 (08:47→20:27)
[2018-11-26] MEDS: Enoxaparin Sodium 40 MG/0.4 ML SYRINGE SC SCH (08:48)
[2018-11-26] MEDS: diphenhydrAMINE 50 MG CAP PO SCH (09:58)
[2018-11-26] MEDS ORDERED: Magnesium Oxide 400 MG TAB PO SCH (10:00)
--- NOTE | 2018-11-26 14:03 | PRG ---
DATE OF SERVICE: 11/26/2018 SUBJECTIVE: The patient is seen and examined at the bedside. She is feeling so much better. She looks like a different patient. She does not have more nausea and vomiting. She started eating slowly and she tolerates her food so far. She complains about some soreness in her thighs, but otherwise she is happy to see significant improvement in her general status. OBJECTIVE: VITAL SIGNS: Blood pressure is 126/83, pulse is 99, respirations 18, O2 saturation is 96% on room air, and temperature is 98.3. HEENT: Her head is atraumatic and normocephalic. Eyes are PERRLA. Sclerae are nonicteric. Oral mucosa is still somewhat dry. NECK: Supple. LUNGS: Clear. HEART: S1 and S2 normal. No S3. No S4. ABDOMEN: Soft and nontender. Bowel sounds are present. No organomegaly. EXTREMITIES: No clubbing, cyanosis, or edema. NEUROLOGICAL: She is alert and oriented x4. There is no any motor deficits. LABORATORY DATA: Sodium of 136, potassium 3.3, chloride 107, CO2 of 18, BUN is 10, creatinine 0.97, and glucose 149. Glycemia is ranging from 89 to 198. Phosphorus is 4.9, and magnesium 1.7. IMPRESSION: 1. Diabetic ketoacidosis, resolved. 2. Persistent nausea and vomiting, either it is related to acute gastroenteritis or gastroparesis. 3. Cholelithiasis with normal common bile duct on the last imaging of the abdomen. 4. Bipolar disorder. 5. Hypokalemia, again for replacement. 6. Diabetes mellitus type 2. PLAN: The patient is started on glipizide 5 mg twice a day. She is going to continue her Reglan 10 mg before each meal. She will try to advance her diet today. Her IV fluids were stopped yesterday. I would like to continue her other medications as before and she should be able to go home in the next 24 hours if she tolerates food. Job ID: [id number]
[2018-11-26] MEDS: Magnesium Oxide 400 MG TAB PO SCH (20:27)
[2018-11-26] MEDS: traZODone HCl 150 MG TAB PO SCH (20:27)
[2018-11-27 05:05] LABS: Anion Gap 12 mmol/L (10-20); BUN (Urea Nitrogen) 9 mg/dL (9.8-20.1); Calc. Creatinine Clearance 95 mL/min (70-130); Calcium 8.9 mg/dL (7.8-10.44); Carbon Dioxide 20 mmol/L (22-29); Chloride 106 mmol/L (98-107); Estimated GFR-MDRD 68; Glucose 163 mg/dL (70-105); Magnesium 1.8 mg/dL (1.6-2.6); Potassium 3.5 mmol/L (3.5-5.1); Sodium 134 mmol/L (136-145)
[2018-11-27] MEDS: Metoclopramide HCl 10 MG TAB PO SCH (06:38)
[2018-11-27] MEDS: glipiZIDE 5 MG TAB PO SCH (06:38)
[2018-11-27 06:52] LABS: Phosphorus 4.1 mg/dL (2.3-4.7)
[2018-11-27] MEDS: Escitalopram Oxalate 20 mg Tablet PO SCH (08:55)
[2018-11-27] MEDS: Amlodipine 5 MG TAB PO SCH (08:55)
[2018-11-27] MEDS: diphenhydrAMINE 50 MG CAP PO SCH (08:55)
[2018-11-27] MEDS: Magnesium Oxide 400 MG TAB PO SCH (08:56)
[2018-11-27] MEDS: Enoxaparin Sodium 40 MG/0.4 ML SYRINGE SC SCH (08:56)
[2018-11-27] MEDS: Lorazepam 1 MG TAB PO SCH (08:56)
[2018-11-27] MEDS ORDERED: Potassium Chloride 20 MEQ TAB PO SCH (09:45)
[2018-11-27 10:48] VITALS: BP 146/95; TEMP 97.4
--- NOTE | 2018-11-28 02:57 | DIS ---
DATE OF ADMISSION: 11/23/2018 DATE OF DISCHARGE: 11/27/2018 CONSULTANTS: 1. Dr. Suarez, Gastrointestinal Service. 2. Dr. Ty Louise, Pulmonary/Critical Care Service. FINAL DIAGNOSES: 1. Diabetic ketoacidosis, resolved. 2. Persistent nausea and vomiting, either it was caused by acute gastroenteritis or gastroparesis. 3. Cholelithiasis. 4. Bipolar disorder. 5. Hypokalemia, replaced. 6. Diabetes mellitus. HOSPITAL COURSE: The patient is a 53-year-old female, who was admitted to the hospital with acute 5-day history of nausea and vomiting and diarrhea. Apparently, she is diabetic, but she has not been taking any medications for more than 6 months, although she was taking her other psych medications. She denied any fever or chills. There was no blood in her stool. She had some abdominal pain, which was mainly in the epigastric area and it was most likely related to vomiting. She received 10 units of insulin and IV fluids in the emergency room in [place] and she was transferred to [facility] in [place]. Her anion gap was up to 27. At the time of emergency room evaluation, her sodium was 135, potassium 3.8, chloride 104, CO2 of 16, BUN 12, creatinine 1.13, glucose 271. The rest of chemistry was within normal limits. CBC was within normal limits. Urinalysis showed 100 of protein, 500 of glucose, more equal 80 of ketones, moderate blood, moderate bilirubin, rbc's 4 to 6, granular casts 0-3. Her blood gases showed pCO2 of 18.6 and PO2 was 37.8 with base excess -10.7. Her liver function test came back normal. Lipase was 19. Troponin I less than 0.010. The patient was diagnosed with diabetic ketoacidosis. She had some fever and diarrhea at the time of admission. She was placed on antiemetics, IV fluids with potassium and the next day, her CO2 went down to 12 and her sodium was down to 129. Her glycemia went up to 317 despite of starting her on insulin. Also, her beta hydroxybutyrate came back high at 3.79. She was moved to [facility], started on insulin drip. Because of her persistent nausea and vomiting, container crane operator was called. Dr. Oconnell saw the patient and he scoped her, which was almost completely negative. The status was post previous gastric sleeve surgery and there was small gastric polyp. He biopsied and duodenum was normal. In the meantime, she underwent CT of the abdomen and pelvis, which showed hepatic steatosis and small hiatal hernia and postoperative changes. There was no any free peritoneal fluid or air. There was no any evidence of bowel obstruction. Also, ultrasound of the abdomen was done which showed multiple cholelithiasis within normal caliber common duct. The patient gradually improved. Her electrolytes deficiencies were replaced. She was placed on Reglan for suspected gastroparesis in the setting of diabetic, who has not been treated for several months for her diabetes. She gradually improved. She is ready to be discharged. Her vitals; blood pressure is 137/91, pulse is 77, temperature is 97.3, respirations 16, O2 saturation is 96% on room air. She was seen and examined before she was discharged. DISPOSITION: Home. ACTIVITY: As tolerated. DIET: 2000 calories ADA. MEDICATIONS: At the time of discharge: 1. Trazodone 300 mg at bedtime. 2. Lorazepam 1 mg 3 times a day. 3. Quetiapine 100 mg twice a day. 4. Zanaflex 4 mg 3 times a day p.r.n. as needed. 5. Prilosec 20 mg daily. 6. Glipizide 5 mg twice a day. 7. Metoclopramide 10 mg before each meal. 8. Magnesium oxide 400 mg twice a day. 9. Amlodipine 5 mg once a day. 10. Escitalopram 20 mg once a day. FOLLOWUP: She is going to follow up with her primary care physician in 1 week and she will need to follow up with Dr. Suarez, who did the biopsy of her polyp to get the results. TIME SPENT: Time spent on this discharge is less than 30 minutes. Job ID: [id number]
== END 2018-11-27 11:05 | disposition home or self-care (01) | DRG 391 ==
LOC: ERS 00:40 → T4-A 02:55 → IMCU/EMU 15:58 → SURG B 11-25 17:03 → SJJU 11-26 12:02
PROVIDERS: ADMIT Family Medicine; ATTEND Family Medicine
PROC: 0DJ08ZZ Inspection of Upper Intestinal Tract, Via Natural or Artificial Opening Endoscopic (ICD-10-PCS; principal; 2018-11-24)
DX: K52.9 Noninfective gastroenteritis and colitis, unspecified (principal); E11.10 Type 2 diabetes mellitus with ketoacidosis without coma; E11.65 Type 2 diabetes mellitus with hyperglycemia; K21.9 Gastro-esophageal reflux disease without esophagitis; M79.7 Fibromyalgia; F31.9 Bipolar disorder, unspecified; F12.10 Cannabis abuse, uncomplicated; E87.6 Hypokalemia; K76.0 Fatty (change of) liver, not elsewhere classified; K80.80 Other cholelithiasis without obstruction; K31.7 Polyp of stomach and duodenum; K44.9 Diaphragmatic hernia without obstruction or gangrene; E11.43 Type 2 diabetes mellitus with diabetic autonomic (poly)neuropathy; K31.84 Gastroparesis; N28.9 Disorder of kidney and ureter, unspecified; Z90.49 Acquired absence of other specified parts of digestive tract; Z90.710 Acquired absence of both cervix and uterus; Z98.84 Bariatric surgery status; Z79.899 Other long term (current) drug therapy
CPT/HCPCS: 36415; 36416; 74177; 76700; 80048; 80053; 81003; 82010; 83735; 84100; 85025; 96361; 96374; J0360; J1200; J1650; J1815; J2405; J2550; J2765; J3480; J3490; J8597; Q0163

== ENCOUNTER 2022-06-07 19:34 | Observation (INO) | payer BC ==
[2022-06-07] MEDS ORDERED: LORazepam 2 MG/ML SYR.(CARPUJECT) ONE (20:23)
[2022-06-07 20:25] LABS: #Basophils 0.1 thou/uL (0.0-0.2); #Lymphocytes 1.2 thou/uL (1.20-3.40); #Monocytes 0.2 thou/uL (0.11-0.59); #Neutrophils 3.5 thou/uL (1.40-6.50); %Basophils 1.4 % (0.0-1.0); %Eosinophils 0.4 % (0.0-10.0); %Lymphocytes 24.5 % (21.0-51.0); %Monocytes 3.8 % (0.0-10.0); %Neutrophils 69.9 % (42.0-75.0); Hemoglobin 11.9 g/dL (12.0-16.0); Mean Corpuscular HGB CONC 35.3 g/dL (32.0-36.0); Mean Corpuscular Hemoglobin 33.1 pg (27.0-31.0); Mean Corpuscular Volume 93.8 fl (78.0-98.0); Mean Platelet Volume 6.1 fL (7.4-10.4); Platelet Count 211 10x3/uL (130-400); RBC Distribution Width 13.3 % (11.5-14.5); Red Blood Cell (RBC) Count 3.58 mill/uL (4.20-5.40)
[2022-06-07 20:45] LABS: ALT (SGPT) 25 U/L (8-55); AST (SGOT) 35 U/L (5-34); Albumin 4.2 g/dL (3.5-5.0); Alkaline Phosphatase 99 U/L (40-110); Anion Gap 18 mmol/L (10-20); BUN (Urea Nitrogen) 12 mg/dL (9.8-20.1); Bilirubin, Total 0.4 mg/dL (0.2-1.2); Calc. Creatinine Clearance 0 mL/min (70-130); Calcium 9.6 mg/dL (7.8-10.44); Carbon Dioxide 19 mmol/L (22-29); Chloride 102 mmol/L (98-107); Estimated GFR 70; Globulin 2.8 g/dL (2.4-3.5); Glucose 75 mg/dL (70-105); Potassium 4.6 mmol/L (3.5-5.1); Sodium 134 mmol/L (136-145)
[2022-06-07 20:54] LABS: Prothrombin Time 13.1 sec (12.0-14.7)
[2022-06-07 20:55] LABS: PTT 31.1 sec (22.9-36.1)
[2022-06-07 21:06] LABS: Acetaminophen Less than 10.0 mcg/mL (10.0-30.0); Alcohol Less than 10 mg/dL (Less than 10); CK (CPK) 252 U/L (29-168); Magnesium 1.5 mg/dL (1.6-2.6); Salicylate Less than 8.0 mg/dL (15.0-30.0)
[2022-06-07 22:00] LABS: Bilirubin Negative (Negative); Glucose, Urine (Dipstick) Normal (Negative); Protein, Urine (Dipstick) 30 mg/dL (Neg-Trace)
[2022-06-07 22:05] LABS: Amphetamine Not Detected (NotDetected); Barbiturates Screen Not Detected (NotDetected); Benzodiazepine Screen Detected (NotDetected); Cocaine Metabolite Screen Not Detected (NotDetected); Methadone Not Detected (NotDetected); Methamphetamine Not Detected (NotDetected); Opiate Screen Not Detected (NotDetected); Oxycodone Screen Not Detected (NotDetected); Phencyclidine (PCP) Not Detected (NotDetected); THC/Cannabinoid Screen Detected (NotDetected); Tricyclic Screen Detected (NotDetected)
[2022-06-07 22:15] LABS: Bacteria/HPF 1+ HPF (None Seen); Blood, Urine Trace (Negative); Clarity Clear (Clear); Ketone, Urine Negative (Negative); Leukocyte Negative Leu/uL (Negative); Nitrite Negative (Negative); RBC/HPF 0-3 HPF (0-3); Specific Gravity, Urine 1.011 (1.002-1.036); Squamous Epithelial 0-3 HPF (0-3); Urobilinogen Normal mg/dL (Less than 2); WBC/HPF 0-3 HPF (0-3)
[2022-06-07] MEDS ORDERED: Dextrose 50% Abboject 50 ML SYRINGE SLOW IVP PRN (23:14)
[2022-06-07] MEDS ORDERED: Lorazepam 2 MG/ML VIAL IM PRN (23:14)
[2022-06-07] MEDS ORDERED: Lorazepam 1 MG TAB PO PRN (23:14)
[2022-06-07] MEDS ORDERED: HumaLOG 300 UNITS/3 ML VIAL SC PRN ×2 (23:14)
[2022-06-07] MEDS ORDERED: Ondansetron ODT 4 MG TAB PO PRN ×2 (23:14)
[2022-06-07] MEDS ORDERED: Ondansetron PF 4 MG/2 ML Vial IVP PRN (23:14)
[2022-06-07] MEDS ORDERED: Dextrose 5% in Water 1,000 ML IV PRN (23:14)
[2022-06-07] MEDS ORDERED: Labetalol HCl 100 MG/20 ML VIAL SLOW IVP PRN (23:14)
[2022-06-07] MEDS ORDERED: Electrolyte Replacement Protocol FS SCH (23:15)
[2022-06-07] MEDS ORDERED: Aspirin Chewable 81 MG TAB ONE (23:58)
[2022-06-07] MEDS ORDERED: Magnesium 2 GM/50 ML BAG (IN WATER) ONE (23:58)
[2022-06-08 00:15] LABS: Lactic Acid 1.6 mmol/L (0.5-2.2)
[2022-06-08 00:16] LABS: Phosphorus 2.8 mg/dL (2.3-4.7)
[2022-06-08 01:11] VITALS: BMI 24.6
[2022-06-08] MEDS ORDERED: DULoxetine 60 MG CAP PO SCH (01:45)
[2022-06-08] MEDS: diphenhydrAMINE 25 MG CAP PO PRN ×2 (02:19→08:31)
[2022-06-08] MEDS: Lorazepam 1 MG TAB PO SCH ×6 (02:20→21:05)
[2022-06-08] MEDS: Thiamine HCl 200 MG/2 ML VIAL SLOW IVP SCH (02:20)
[2022-06-08] MEDS: Acetaminophen 325 MG TAB PO PRN ×2 (02:23→08:32)
[2022-06-08 04:48] LABS: #Eosinphils 0.1 thou/uL (0.0-0.7); #Lymphocytes 1.4 thou/uL (1.20-3.40); #Monocytes 0.2 thou/uL (0.11-0.59); #Neutrophils 2.9 thou/uL (1.40-6.50); %Basophils 0.6 % (0.0-1.0); %Eosinophils 2.2 % (0.0-10.0); %Lymphocytes 29.8 % (21.0-51.0); %Monocytes 4.4 % (0.0-10.0); Hemoglobin 11.1 g/dL (12.0-16.0); Mean Corpuscular HGB CONC 35.6 g/dL (32.0-36.0); Mean Corpuscular Hemoglobin 33.4 pg (27.0-31.0); Mean Corpuscular Volume 93.9 fl (78.0-98.0); Mean Platelet Volume 6.8 fL (7.4-10.4); Platelet Count 181 10x3/uL (130-400); RBC Distribution Width 13.4 % (11.5-14.5); Red Blood Cell (RBC) Count 3.33 mill/uL (4.20-5.40); White Blood Cell (WBC) Count 4.6 10x3/uL (4.8-10.8)
[2022-06-08 05:09] LABS: Hemoglobin A1c 4.9 % (4.0-6.0)
[2022-06-08 05:13] LABS: ALT (SGPT) 22 U/L (8-55); AST (SGOT) 34 U/L (5-34); Albumin 3.7 g/dL (3.5-5.0); Alkaline Phosphatase 91 U/L (40-110); Anion Gap 14 mmol/L (10-20); BUN (Urea Nitrogen) 12 mg/dL (9.8-20.1); Bilirubin, Total 0.4 mg/dL (0.2-1.2); Calc. Creatinine Clearance 69 mL/min (70-130); Calcium 8.9 mg/dL (7.8-10.44); Carbon Dioxide 15 mmol/L (22-29); Cardiac Risk 1.5 (Less than 4.5); Chloride 104 mmol/L (98-107); Cholesterol 117 mg/dl (< 200 Desired); Estimated GFR 63; Glucose 242 mg/dL (70-105); HDL Cholesterol 80 mg/dL (>60 Neg Risk); LDL Cholesterol, Calculated 24 mg/dL; Potassium 4.4 mmol/L (3.5-5.1); Protein, Total 6.7 g/dL (6.0-8.3); Sodium 129 mmol/L (136-145); Triglycerides 63 mg/dL (Less than 150)
[2022-06-08] MEDS: Mometasone 200 MCG/Formoterol 5 MCG 120 PUFF INHALER INH SCH ×2 (07:21→22:48)
[2022-06-08] MEDS: DULoxetine 60 MG CAP PO SCH (08:20)
[2022-06-08] MEDS: Aspirin 81 mg Enteric Coated Tablet PO SCH (08:20)
[2022-06-08] MEDS: Rosuvastatin 20 MG TAB PO SCH (08:20)
[2022-06-08] MEDS: Folic Acid 1 MG TAB PO SCH (08:21)
[2022-06-08] MEDS: QUEtiapine 100 MG TAB PO SCH ×2 (08:21→21:04)
[2022-06-08] MEDS: glipiZIDE 5 MG TAB PO SCH ×2 (08:21→21:04)
[2022-06-08] MEDS ORDERED: Multivit, Therapeutic 1 TAB PO SCH (09:00)
[2022-06-08] MEDS: metFORMIN 500 MG TAB PO SCH ×2 (14:52→21:05)
[2022-06-08] MEDS ORDERED: Atorvastatin Calcium 40 MG TAB PO SCH (21:00)
[2022-06-08] MEDS ORDERED: traZODone HCl 150 MG TAB PO SCH (21:00)
[2022-06-08] MEDS ORDERED: Lorazepam 1 MG TAB PO PRN (23:14)
[2022-06-09] MEDS: Thiamine HCl 200 MG/2 ML VIAL SLOW IVP SCH
[2022-06-09] MEDS: Lorazepam 1 MG TAB PO SCH ×3 (02:48→08:46)
[2022-06-09 05:59] LABS: Hemoglobin 11.7 g/dL (12.0-16.0); Mean Corpuscular HGB CONC 34.1 g/dL (32.0-36.0); Mean Corpuscular Hemoglobin 32.4 pg (27.0-31.0); Mean Platelet Volume 6.6 fL (7.4-10.4); Platelet Count 205 10x3/uL (130-400); RBC Distribution Width 13.3 % (11.5-14.5); Red Blood Cell (RBC) Count 3.62 mill/uL (4.20-5.40); White Blood Cell (WBC) Count 4.8 10x3/uL (4.8-10.8)
[2022-06-09 06:18] LABS: Anion Gap 14 mmol/L (10-20); BUN (Urea Nitrogen) 13 mg/dL (9.8-20.1); Calc. Creatinine Clearance 64 mL/min (70-130); Calcium 9.4 mg/dL (7.8-10.44); Carbon Dioxide 19 mmol/L (22-29); Chloride 105 mmol/L (98-107); Estimated GFR 57; Glucose 115 mg/dL (70-105); Potassium 3.8 mmol/L (3.5-5.1); Sodium 134 mmol/L (136-145)
[2022-06-09 06:46] LABS: Band 1 % (5-11); Eosinophils 2 % (0-10); Lymphocytes 59 % (21-51); MDiff Complete? YES; Monocytes 4 % (0-10); Neutrophil 34 % (42-75)
[2022-06-09] MEDS: DULoxetine 60 MG CAP PO SCH (08:44)
[2022-06-09] MEDS: Folic Acid 1 MG TAB PO SCH (08:44)
[2022-06-09] MEDS: QUEtiapine 100 MG TAB PO SCH (08:44)
[2022-06-09] MEDS: Rosuvastatin 20 MG TAB PO SCH (08:44)
[2022-06-09] MEDS: metFORMIN 500 MG TAB PO SCH (08:44)
[2022-06-09] MEDS: glipiZIDE 5 MG TAB PO SCH (08:45)
[2022-06-09] MEDS: Aspirin 81 mg Enteric Coated Tablet PO SCH (08:45)
[2022-06-09] MEDS ORDERED: Non-Formulary Item 1 EACH (Omeprazole [Omeprazole] 20 MG Capsule.Dr) PO SCH (09:00)
[2022-06-09] MEDS ORDERED: Multivit, Therapeutic 1 TAB PO SCH (09:00)
[2022-06-09] MEDS ORDERED: Amlodipine 5 MG TAB PO SCH (09:00)
[2022-06-09 11:40] VITALS: TEMP 98.1
[2022-06-09 11:57] VITALS: BP 121/84
[2022-06-09] MEDS ORDERED: Lorazepam 1 MG TAB PO PRN (23:14)
[2022-06-09] MEDS ORDERED: Lorazepam 0.5 MG TAB PO SCH (23:15)
[2022-06-10] MEDS ORDERED: Lorazepam 0.5 MG TAB PO PRN (23:14)
[2022-06-10] MEDS ORDERED: Thiamine 100 MG TAB PO SCH (23:15)
== END 2022-06-09 13:05 | disposition home or self-care (01) ==
LOC: ERS 19:34 → 2NO 23:14
PROVIDERS: ADMIT Internal Medicine; ATTEND Internal Medicine
DX: R53.1 Weakness (principal); R47.81 Slurred speech; K21.9 Gastro-esophageal reflux disease without esophagitis; M79.7 Fibromyalgia; I10 Essential (primary) hypertension; F10.10 Alcohol abuse, uncomplicated; E11.10 Type 2 diabetes mellitus with ketoacidosis without coma; G93.40 Encephalopathy, unspecified; E11.65 Type 2 diabetes mellitus with hyperglycemia; I08.1 Rheumatic disorders of both mitral and tricuspid valves; F12.10 Cannabis abuse, uncomplicated; R25.1 Tremor, unspecified; Z86.73 Personal history of transient ischemic attack (TIA), and cerebral infarction without residual deficits; Z79.84 Long term (current) use of oral hypoglycemic drugs; Z79.899 Other long term (current) drug therapy; Y90.0 Blood alcohol level of less than 20 mg/100 ml
CPT/HCPCS: 36415; 36416; 70450; 70551; 71045; 80048; 80053; 80061; 80306; 80307; 81003; 81015; 82550; 82607; 83036; 83605; 83735; 84100; 84443; 84484; 85025; 85610; 85730; 93005; 93306; 93880; 94760; 95712; 95819; 95957; 96361; 96374; 96375; G0378; J1815; J2060; J3411; J3475

== ENCOUNTER 2022-08-18 01:29 | Emergency (ER) | payer BC ==
[2022-08-18 02:06] LABS: #Monocytes 0.2 thou/uL (0.11-0.59); #Neutrophils 2.6 thou/uL (1.40-6.50); %Basophils 0.2 % (0.0-1.0); %Eosinophils 0.7 % (0.0-10.0); %Lymphocytes 34.6 % (21.0-51.0); %Neutrophils 59.3 % (42.0-75.0); Hemoglobin 10.7 g/dL (12.0-16.0); Mean Corpuscular HGB CONC 34.7 g/dL (32.0-36.0); Mean Corpuscular Hemoglobin 31.6 pg (27.0-31.0); Mean Corpuscular Volume 90.9 fl (78.0-98.0); Mean Platelet Volume 8.9 fL (7.4-10.4); Platelet Count 187 10x3/uL (130-400); RBC Distribution Width 13.2 % (11.5-14.5); Red Blood Cell (RBC) Count 3.39 mill/uL (4.20-5.40); White Blood Cell (WBC) Count 4.4 10x3/uL (4.8-10.8)
[2022-08-18 02:31] LABS: ALT (SGPT) 15 U/L (8-55); AST (SGOT) 22 U/L (5-34); Albumin 4.3 g/dL (3.5-5.0); Alkaline Phosphatase 57 U/L (40-110); Anion Gap 17 mmol/L (10-20); BUN (Urea Nitrogen) 7 mg/dL (9.8-20.1); Bilirubin, Total 0.2 mg/dL (0.2-1.2); Calc. Creatinine Clearance 0 mL/min (70-130); Calcium 8.5 mg/dL (7.8-10.44); Carbon Dioxide 18 mmol/L (22-29); Chloride 96 mmol/L (98-107); Estimated GFR 76; Globulin 2.8 g/dL (2.4-3.5); Glucose 195 mg/dL (70-105); Potassium 3.5 mmol/L (3.5-5.1); Protein, Total 7.1 g/dL (6.0-8.3); Sodium 127 mmol/L (136-145)
[2022-08-18 02:51] LABS: Bacteria/HPF None Seen HPF (None Seen); Bilirubin Negative (Negative); Blood, Urine Negative (Negative); CAUTI Indications for Culture Alt mental st,lethar; Clarity Clear (Clear); Glucose, Urine (Dipstick) 150 mg/dL (Negative); Ketone, Urine Negative (Negative); Leukocyte Negative Leu/uL (Negative); Nitrite Negative (Negative); Protein, Urine (Dipstick) Negative (Neg-Trace); RBC/HPF 0-3 HPF (0-3); Specific Gravity, Urine 1.005 (1.002-1.036); Squamous Epithelial 0-3 HPF (0-3); Urobilinogen Normal mg/dL (Less than 2); WBC/HPF 0-3 HPF (0-3)
[2022-08-18 02:53] LABS: Urine Culture Reflex No No
== END 2022-08-18 03:20 | disposition home or self-care (01) ==
LOC: ERS 01:29
DX: E16.2 Hypoglycemia, unspecified (principal); E11.9 Type 2 diabetes mellitus without complications; I10 Essential (primary) hypertension; D72.819 Decreased white blood cell count, unspecified; K21.9 Gastro-esophageal reflux disease without esophagitis; Z79.899 Other long term (current) drug therapy; Z79.84 Long term (current) use of oral hypoglycemic drugs
CPT/HCPCS: 36415; 80053; 81001; 85025; 99285

== ENCOUNTER 2022-08-22 15:04 | Inpatient (IN) | payer BC ==
[~2022-08-22 15:04] MED LIST: Iopamidol-370 76% 500 ML MDV (1 ML CHARGE) ONE
[2022-08-22] MEDS ORDERED: Morphine 4 MG/ML VIAL ONE (16:57)
[2022-08-22] MEDS ORDERED: Ondansetron PF 4 MG/2 ML Vial ONE (16:57)
[2022-08-22 17:14] LABS: #Eosinphils 0.2 thou/uL (0.0-0.7); #Monocytes 0.4 thou/uL (0.11-0.59); #Neutrophils 4.1 thou/uL (1.40-6.50); %Basophils 0.3 % (0.0-1.0); %Eosinophils 2.5 % (0.0-10.0); %Lymphocytes 27.1 % (21.0-51.0); %Monocytes 6.7 % (0.0-10.0); %Neutrophils 63.2 % (42.0-75.0); Hemoglobin 9.6 g/dL (12.0-16.0); Mean Corpuscular HGB CONC 33.8 g/dL (32.0-36.0); Mean Corpuscular Hemoglobin 31.4 pg (27.0-31.0); Mean Corpuscular Volume 92.8 fl (78.0-98.0); Mean Platelet Volume 9.2 fL (7.4-10.4); Platelet Count 177 10x3/uL (130-400); RBC Distribution Width 13.8 % (11.5-14.5); Red Blood Cell (RBC) Count 3.06 mill/uL (4.20-5.40); White Blood Cell (WBC) Count 6.4 10x3/uL (4.8-10.8)
[2022-08-22 17:37] LABS: ALT (SGPT) 11 U/L (8-55); AST (SGOT) 15 U/L (5-34); Albumin 3.7 g/dL (3.5-5.0); Alkaline Phosphatase 58 U/L (40-110); Anion Gap 15 mmol/L (10-20); BUN (Urea Nitrogen) 15 mg/dL (9.8-20.1); Bilirubin, Total 0.3 mg/dL (0.2-1.2); Calc. Creatinine Clearance 0 mL/min (70-130); Calcium 9.1 mg/dL (7.8-10.44); Carbon Dioxide 21 mmol/L (22-29); Chloride 100 mmol/L (98-107); Estimated GFR 67; Globulin 3.2 g/dL (2.4-3.5); Glucose 135 mg/dL (70-105); Potassium 3.9 mmol/L (3.5-5.1); Protein, Total 6.9 g/dL (6.0-8.3); Sodium 132 mmol/L (136-145)
[2022-08-22] MEDS ORDERED: Glucagon 1 MG/ML KIT IM PRN (19:11)
[2022-08-22] MEDS ORDERED: Dextrose 50% Abboject 50 ML SYRINGE SLOW IVP PRN (19:11)
[2022-08-22] MEDS ORDERED: Ondansetron PF 4 MG/2 ML Vial IVP PRN (19:11)
[2022-08-22] MEDS ORDERED: Dextrose 5% in Water 1,000 ML IV PRN (19:11)
[2022-08-22] MEDS ORDERED: traMADol HCl 50 MG TAB PO PRN (19:19)
[2022-08-22] MEDS ORDERED: cloNIDine 0.1 MG TAB PO PRN (19:23)
[2022-08-22] MEDS ORDERED: Famotidine 20 MG TAB PO SCH (21:00)
[2022-08-22] MEDS: metFORMIN 500 MG TAB PO SCH (21:30)
[2022-08-22] MEDS: Senokot S 8.6-50 MG TAB PO SCH (21:30)
[2022-08-22] MEDS: Cyclobenzaprine 10 MG TAB PO PRN (21:30)
[2022-08-22] MEDS: Thiamine 100 MG TAB PO SCH (21:30)
[2022-08-22] MEDS: traZODone HCl 150 MG TAB PO SCH (21:30)
[2022-08-22] MEDS: Morphine 2 MG/ML VIAL SLOW IVP PRN (21:31)
[2022-08-22] MEDS: Sodium Chloride 0.9% 1,000 ML IV SCH (21:35)
[2022-08-22 22:59] VITALS: BMI 25.2
[2022-08-22] MEDS ORDERED: Acetaminophen 500 MG TAB PO SCH (23:59)
[2022-08-22] MEDS ORDERED: traMADol HCl 50 MG TAB PO SCH (23:59)
[2022-08-23] MEDS: Acetaminophen 325 MG TAB PO SCH ×3 (00:22→13:32)
[2022-08-23] MEDS: Acetaminophen/Codeine 30-300mg Tablet PO SCH ×4 (00:22→18:44)
[2022-08-23] MEDS: diphenhydrAMINE 25 MG CAP PO PRN ×2 (06:01→15:44)
[2022-08-23] MEDS: Sodium Chloride 0.9% 1,000 ML IV SCH ×3 (06:02→21:00)
[2022-08-23] MEDS: Ipratropium/Albuterol 3 ML NEB NEB SCH ×3 (06:32→19:02)
[2022-08-23] MEDS ORDERED: Pregabalin 25 MG CAP PO SCH (09:00)
[2022-08-23] MEDS: Folic Acid 1 MG TAB PO SCH (09:23)
[2022-08-23] MEDS: Polyethylene Glycol 3350 17 GM Packet PO SCH (09:23)
[2022-08-23] MEDS: metFORMIN 500 MG TAB PO SCH ×3 (09:23→20:58)
[2022-08-23] MEDS: DULoxetine 60 MG CAP PO SCH (09:23)
[2022-08-23] MEDS: Senokot S 8.6-50 MG TAB PO SCH ×2 (09:24→20:58)
[2022-08-23] MEDS: QUEtiapine 100 MG TAB PO SCH ×2 (09:24→21:11)
[2022-08-23] MEDS: Amlodipine 5 MG TAB PO SCH (09:27)
[2022-08-23] MEDS: Cyclobenzaprine 10 MG TAB PO PRN ×2 (09:28→18:45)
[2022-08-23 10:24] LABS: INR-International Normal Ratio 0.9; Prothrombin Time 12.7 sec (12.0-14.7)
[2022-08-23 10:25] LABS: PTT 29.8 sec (22.9-36.1)
[2022-08-23 10:27] LABS: Anion Gap 13 mmol/L (10-20); BUN (Urea Nitrogen) 8 mg/dL (9.8-20.1); Calc. Creatinine Clearance 83 mL/min (70-130); Calcium 8.9 mg/dL (7.8-10.44); Carbon Dioxide 18 mmol/L (22-29); Chloride 105 mmol/L (98-107); Estimated GFR 76; Glucose 217 mg/dL (70-105); Potassium 3.8 mmol/L (3.5-5.1); Sodium 132 mmol/L (136-145)
[2022-08-23 10:27] LABS: #Eosinphils 0.1 thou/uL (0.0-0.7); #Monocytes 0.5 thou/uL (0.11-0.59); #Neutrophils 4.4 thou/uL (1.40-6.50); %Basophils 0.3 % (0.0-1.0); %Eosinophils 2.2 % (0.0-10.0); %Lymphocytes 21.3 % (21.0-51.0); Hemoglobin 9.5 g/dL (12.0-16.0); Mean Corpuscular HGB CONC 32.3 g/dL (32.0-36.0); Mean Corpuscular Hemoglobin 31.7 pg (27.0-31.0); Mean Platelet Volume 9.4 fL (7.4-10.4); Platelet Count 184 10x3/uL (130-400); RBC Distribution Width 14.3 % (11.5-14.5); White Blood Cell (WBC) Count 6.4 10x3/uL (4.8-10.8)
[2022-08-23] MEDS: Ketorolac Tromethamine 30 MG/ML VIAL IVP SCH ×2 (15:35→20:58)
[2022-08-23] MEDS: traZODone HCl 150 MG TAB PO SCH (20:58)
[2022-08-23] MEDS: Thiamine 100 MG TAB PO SCH (20:58)
[2022-08-23] MEDS: Pregabalin 50 MG CAP PO SCH (20:58)
[2022-08-24] MEDS: Acetaminophen/Codeine 30-300mg Tablet PO SCH ×5 (00:44→23:43)
[2022-08-24] MEDS: Ketorolac Tromethamine 30 MG/ML VIAL IVP SCH ×2 (03:53→09:23)
[2022-08-24] MEDS: Sodium Chloride 0.9% 1,000 ML IV SCH (06:06)
[2022-08-24 06:40] LABS: #Eosinphils 0.2 thou/uL (0.0-0.7); #Monocytes 0.4 thou/uL (0.11-0.59); #Neutrophils 2.2 thou/uL (1.40-6.50); %Basophils 0.4 % (0.0-1.0); %Eosinophils 3.3 % (0.0-10.0); %Lymphocytes 42.8 % (21.0-51.0); %Monocytes 7.6 % (0.0-10.0); %Neutrophils 45.7 % (42.0-75.0); Hemoglobin 8.1 g/dL (12.0-16.0); Mean Corpuscular HGB CONC 31.9 g/dL (32.0-36.0); Mean Corpuscular Hemoglobin 30.7 pg (27.0-31.0); Mean Corpuscular Volume 96.2 fl (78.0-98.0); Mean Platelet Volume 9.3 fL (7.4-10.4); Platelet Count 180 10x3/uL (130-400); RBC Distribution Width 14.5 % (11.5-14.5); Red Blood Cell (RBC) Count 2.64 mill/uL (4.20-5.40); White Blood Cell (WBC) Count 4.9 10x3/uL (4.8-10.8)
[2022-08-24] MEDS: Ipratropium/Albuterol 3 ML NEB NEB SCH ×3 (07:11→19:54)
[2022-08-24] MEDS: Folic Acid 1 MG TAB PO SCH (09:24)
[2022-08-24] MEDS: Senokot S 8.6-50 MG TAB PO SCH ×2 (09:25→20:37)
[2022-08-24] MEDS: metFORMIN 500 MG TAB PO SCH ×3 (09:25→20:35)
[2022-08-24] MEDS: QUEtiapine 100 MG TAB PO SCH ×2 (09:25→20:38)
[2022-08-24] MEDS: Polyethylene Glycol 3350 17 GM Packet PO SCH (09:26)
[2022-08-24] MEDS: Amlodipine 5 MG TAB PO SCH (09:34)
[2022-08-24] MEDS: Pregabalin 50 MG CAP PO SCH ×2 (09:43→20:35)
[2022-08-24] MEDS: DULoxetine 60 MG CAP PO SCH (09:43)
[2022-08-24] MEDS: Cyclobenzaprine 10 MG TAB PO PRN (12:53)
[2022-08-24] MEDS: Ibuprofen 200 MG TAB PO SCH ×2 (15:25→20:37)
[2022-08-24] MEDS: Thiamine 100 MG TAB PO SCH (20:37)
[2022-08-24] MEDS: traZODone HCl 150 MG TAB PO SCH (20:37)
[2022-08-25] MEDS: Acetaminophen/Codeine 30-300mg Tablet PO SCH ×4 (06:02→23:41)
[2022-08-25] MEDS: Ibuprofen 200 MG TAB PO SCH (06:03)
[2022-08-25] MEDS: Ipratropium/Albuterol 3 ML NEB NEB SCH ×3 (07:18→18:11)
[2022-08-25] MEDS ORDERED: Lidocaine 1% (PF) 30 ML VIAL ONE (09:02)
[2022-08-25] MEDS: DULoxetine 60 MG CAP PO SCH (09:24)
[2022-08-25] MEDS: metFORMIN 500 MG TAB PO SCH ×3 (09:24→20:11)
[2022-08-25] MEDS: QUEtiapine 100 MG TAB PO SCH ×2 (09:24→20:10)
[2022-08-25] MEDS: Folic Acid 1 MG TAB PO SCH (09:24)
[2022-08-25] MEDS: Polyethylene Glycol 3350 17 GM Packet PO SCH (09:24)
[2022-08-25] MEDS: Pregabalin 50 MG CAP PO SCH ×2 (09:25→20:12)
[2022-08-25] MEDS: Cyclobenzaprine 10 MG TAB PO PRN ×2 (09:25→20:11)
[2022-08-25] MEDS: Senokot S 8.6-50 MG TAB PO SCH ×2 (09:25→20:11)
[2022-08-25] MEDS: Amlodipine 5 MG TAB PO SCH (09:25)
[2022-08-25 10:13] LABS: #Eosinphils 0.2 thou/uL (0.0-0.7); #Monocytes 0.3 thou/uL (0.11-0.59); #Neutrophils 2.4 thou/uL (1.40-6.50); %Basophils 0.5 % (0.0-1.0); %Eosinophils 3.8 % (0.0-10.0); %Lymphocytes 31.8 % (21.0-51.0); %Monocytes 7.8 % (0.0-10.0); %Neutrophils 55.9 % (42.0-75.0); Hemoglobin 8.5 g/dL (12.0-16.0); Mean Corpuscular HGB CONC 30.6 g/dL (32.0-36.0); Mean Corpuscular Hemoglobin 31.1 pg (27.0-31.0); Mean Corpuscular Volume 101.8 fl (78.0-98.0); Mean Platelet Volume 8.9 fL (7.4-10.4); Platelet Count 209 10x3/uL (130-400); RBC Distribution Width 14.5 % (11.5-14.5); Red Blood Cell (RBC) Count 2.73 mill/uL (4.20-5.40); White Blood Cell (WBC) Count 4.2 10x3/uL (4.8-10.8)
[2022-08-25 10:33] LABS: Anion Gap 15 mmol/L (10-20); BUN (Urea Nitrogen) 8 mg/dL (9.8-20.1); Calc. Creatinine Clearance 79 mL/min (70-130); Calcium 8.7 mg/dL (7.8-10.44); Carbon Dioxide 19 mmol/L (22-29); Chloride 103 mmol/L (98-107); Estimated GFR 72; Glucose 174 mg/dL (70-105); Potassium 3.8 mmol/L (3.5-5.1); Sodium 133 mmol/L (136-145)
[2022-08-25] MEDS ORDERED: CEFAZOLIN 2 GM VIAL SLOW IVP SCH (11:30)
[2022-08-25] MEDS ORDERED: Sterile Water 10 ML VIAL FS SCH (11:30)
[2022-08-25] MEDS: Ketorolac Tromethamine 30 MG/ML VIAL ONE ×2 (12:05→13:31)
[2022-08-25] MEDS: Ketorolac Tromethamine 30 MG/ML VIAL IVP SCH ×4 (12:05→23:42)
[2022-08-25] MEDS: Morphine 2 MG/ML VIAL SLOW IVP PRN ×2 (14:37→20:08)
[2022-08-25] MEDS: traZODone HCl 150 MG TAB PO SCH (20:10)
[2022-08-25] MEDS: Thiamine 100 MG TAB PO SCH (20:11)
[2022-08-25] MEDS: Rosuvastatin 20 MG TAB PO SCH (20:11)
[2022-08-26] MEDS: Ketorolac Tromethamine 30 MG/ML VIAL IVP SCH ×3 (05:30→17:26)
[2022-08-26] MEDS: Acetaminophen/Codeine 30-300mg Tablet PO SCH ×3 (05:31→17:26)
[2022-08-26 05:51] LABS: #Eosinphils 0.2 thou/uL (0.0-0.7); #Monocytes 0.4 thou/uL (0.11-0.59); #Neutrophils 1.8 thou/uL (1.40-6.50); %Basophils 0.5 % (0.0-1.0); %Eosinophils 4.1 % (0.0-10.0); %Lymphocytes 45.9 % (21.0-51.0); %Monocytes 8.2 % (0.0-10.0); %Neutrophils 41.1 % (42.0-75.0); Hemoglobin 8.4 g/dL (12.0-16.0); Mean Corpuscular HGB CONC 31.5 g/dL (32.0-36.0); Mean Corpuscular Hemoglobin 30.9 pg (27.0-31.0); Mean Platelet Volume 9.1 fL (7.4-10.4); Platelet Count 220 10x3/uL (130-400); RBC Distribution Width 14.3 % (11.5-14.5); Red Blood Cell (RBC) Count 2.72 mill/uL (4.20-5.40); White Blood Cell (WBC) Count 4.4 10x3/uL (4.8-10.8)
[2022-08-26 06:00] LABS: Mean Corpuscular Volume 98.2 fl (78.0-98.0)
[2022-08-26] MEDS: Ipratropium/Albuterol 3 ML NEB NEB SCH ×3 (07:20→19:18)
[2022-08-26] MEDS: metFORMIN 500 MG TAB PO SCH ×3 (08:04→20:14)
[2022-08-26] MEDS: Pregabalin 50 MG CAP PO SCH ×2 (08:04→20:14)
[2022-08-26] MEDS: DULoxetine 60 MG CAP PO SCH (08:04)
[2022-08-26] MEDS: Folic Acid 1 MG TAB PO SCH (08:04)
[2022-08-26] MEDS: Senokot S 8.6-50 MG TAB PO SCH ×2 (08:05→20:14)
[2022-08-26] MEDS: Polyethylene Glycol 3350 17 GM Packet PO SCH (08:05)
[2022-08-26] MEDS: QUEtiapine 100 MG TAB PO SCH ×2 (08:05→20:14)
[2022-08-26] MEDS: Amlodipine 5 MG TAB PO SCH (08:05)
[2022-08-26] MEDS: Cyclobenzaprine 10 MG TAB PO PRN ×2 (08:54→17:31)
[2022-08-26] MEDS: Ascorbic Acid 500 mg Chewable Tablet PO SCH (08:55)
[2022-08-26] MEDS: Ferrous Sulfate 325 MG TAB PO SCH (08:55)
[2022-08-26] MEDS: Morphine 2 MG/ML VIAL SLOW IVP PRN ×2 (14:42→20:13)
[2022-08-26] MEDS: Thiamine 100 MG TAB PO SCH (20:14)
[2022-08-26] MEDS: Rosuvastatin 20 MG TAB PO SCH (20:15)
[2022-08-26] MEDS: traZODone HCl 150 MG TAB PO SCH (20:15)
[2022-08-27] MEDS: Ketorolac Tromethamine 30 MG/ML VIAL IVP SCH ×2 (00:08→06:32)
[2022-08-27] MEDS: Acetaminophen/Codeine 30-300mg Tablet PO SCH ×5 (00:09→23:51)
[2022-08-27] MEDS: Morphine 2 MG/ML VIAL SLOW IVP PRN ×2 (02:20→06:32)
[2022-08-27] MEDS: Cyclobenzaprine 10 MG TAB PO PRN ×2 (02:20→13:01)
[2022-08-27] MEDS: Ipratropium/Albuterol 3 ML NEB NEB SCH ×3 (07:33→18:15)
[2022-08-27] MEDS: Folic Acid 1 MG TAB PO SCH (08:02)
[2022-08-27] MEDS: DULoxetine 60 MG CAP PO SCH (08:02)
[2022-08-27] MEDS: metFORMIN 500 MG TAB PO SCH ×3 (08:02→20:02)
[2022-08-27] MEDS: QUEtiapine 100 MG TAB PO SCH ×2 (08:02→20:02)
[2022-08-27] MEDS: Ascorbic Acid 500 mg Chewable Tablet PO SCH (08:02)
[2022-08-27] MEDS: Amlodipine 5 MG TAB PO SCH (08:03)
[2022-08-27] MEDS: Senokot S 8.6-50 MG TAB PO SCH ×2 (08:03→20:02)
[2022-08-27] MEDS: Pregabalin 50 MG CAP PO SCH ×2 (08:03→20:03)
[2022-08-27] MEDS: Ferrous Sulfate 325 MG TAB PO SCH (08:03)
[2022-08-27] MEDS: Polyethylene Glycol 3350 17 GM Packet PO SCH (08:04)
[2022-08-27] MEDS: Ibuprofen 200 MG TAB PO PRN (13:02)
[2022-08-27 16:14] LABS: #Eosinphils 0.2 thou/uL (0.0-0.7); #Monocytes 0.3 thou/uL (0.11-0.59); #Neutrophils 2.1 thou/uL (1.40-6.50); %Basophils 0.5 % (0.0-1.0); %Eosinophils 4.1 % (0.0-10.0); %Lymphocytes 34.4 % (21.0-51.0); %Monocytes 6.6 % (0.0-10.0); %Neutrophils 54.1 % (42.0-75.0); Hemoglobin 8.5 g/dL (12.0-16.0); Mean Corpuscular Volume 97.1 fl (78.0-98.0); Platelet Count 214 10x3/uL (130-400); RBC Distribution Width 13.8 % (11.5-14.5); Red Blood Cell (RBC) Count 2.74 mill/uL (4.20-5.40); White Blood Cell (WBC) Count 3.9 10x3/uL (4.8-10.8)
[2022-08-27 17:03] LABS: Manual Diff?? YES
[2022-08-27 17:38] LABS: Bacteria/HPF None Seen HPF (None Seen); Bilirubin Negative (Negative); Blood, Urine Negative (Negative); CAUTI Indications for Culture Dysuria,urgency,freq; Clarity Clear (Clear); Glucose, Urine (Dipstick) Normal (Negative); Ketone, Urine Negative (Negative); Leukocyte Negative Leu/uL (Negative); Nitrite Negative (Negative); Protein, Urine (Dipstick) Negative (Neg-Trace); RBC/HPF None Seen HPF (0-3); Specific Gravity, Urine 1.005 (1.002-1.036); Squamous Epithelial 0-3 HPF (0-3); Urobilinogen Normal mg/dL (Less than 2); WBC/HPF 0-3 HPF (0-3); pH, Urine 5.5 (5.0-9.0)
[2022-08-27 17:39] LABS: Urine Culture Reflex No No
[2022-08-27 17:45] LABS: Band 1 % (5-11); Eosinophils 4 % (0-10); Lymphocytes 31 % (21-51); Macrocytosis SLIGHT = 6-15 cells HPF (0-5); Monocytes 5 % (0-10); Neutrophil 59 % (42-75); Ovalocytes SLIGHT = 2-5 cells HPF (0-1); Platelet Adequacy Comment Platelets Normal; Polychromasia SLIGHT = 2-3 cells HPF (0-2); Total Cell Count 103
[2022-08-27] MEDS: traZODone HCl 150 MG TAB PO SCH (20:02)
[2022-08-27] MEDS: Rosuvastatin 20 MG TAB PO SCH (20:02)
[2022-08-27] MEDS: Thiamine 100 MG TAB PO SCH (20:02)
[2022-08-27] MEDS: Acetaminophen 325 MG TAB PO PRN (20:03)
[2022-08-28] MEDS: Acetaminophen 325 MG TAB PO PRN (04:40)
[2022-08-28] MEDS: Acetaminophen/Codeine 30-300mg Tablet PO SCH ×3 (06:34→18:44)
[2022-08-28] MEDS: Ipratropium/Albuterol 3 ML NEB NEB SCH ×3 (06:43→19:22)
[2022-08-28 07:16] LABS: #Eosinphils 0.2 thou/uL (0.0-0.7); #Monocytes 0.3 thou/uL (0.11-0.59); #Neutrophils 2.8 thou/uL (1.40-6.50); %Basophils 0.4 % (0.0-1.0); %Eosinophils 3.2 % (0.0-10.0); %Lymphocytes 39.4 % (21.0-51.0); %Monocytes 5.4 % (0.0-10.0); %Neutrophils 51.2 % (42.0-75.0); Hemoglobin 9.3 g/dL (12.0-16.0); Mean Corpuscular HGB CONC 31.8 g/dL (32.0-36.0); Mean Corpuscular Hemoglobin 30.8 pg (27.0-31.0); Mean Corpuscular Volume 96.7 fl (78.0-98.0); Platelet Count 240 10x3/uL (130-400); Red Blood Cell (RBC) Count 3.02 mill/uL (4.20-5.40); White Blood Cell (WBC) Count 5.4 10x3/uL (4.8-10.8)
[2022-08-28] MEDS: metFORMIN 500 MG TAB PO SCH ×3 (08:17→21:15)
[2022-08-28] MEDS: Amlodipine 5 MG TAB PO SCH (08:17)
[2022-08-28] MEDS: Ferrous Sulfate 325 MG TAB PO SCH (08:17)
[2022-08-28] MEDS: Folic Acid 1 MG TAB PO SCH (08:17)
[2022-08-28] MEDS: DULoxetine 60 MG CAP PO SCH (08:17)
[2022-08-28] MEDS: Ascorbic Acid 500 mg Chewable Tablet PO SCH (08:17)
[2022-08-28] MEDS: Pregabalin 50 MG CAP PO SCH ×2 (08:18→21:15)
[2022-08-28] MEDS: QUEtiapine 100 MG TAB PO SCH ×2 (08:19→21:16)
[2022-08-28] MEDS: Senokot S 8.6-50 MG TAB PO SCH (08:21)
[2022-08-28] MEDS: Polyethylene Glycol 3350 17 GM Packet PO SCH (08:21)
[2022-08-28] MEDS: Ibuprofen 200 MG TAB PO PRN (10:49)
[2022-08-28] MEDS ORDERED: Polyethylene Glycol 3350 17 GM Packet PO PRN (14:14)
[2022-08-28] MEDS ORDERED: Senokot S 8.6-50 MG TAB PO PRN (14:14)
[2022-08-28] MEDS: Cyclobenzaprine 10 MG TAB PO PRN (21:15)
[2022-08-28] MEDS: traZODone HCl 150 MG TAB PO SCH (21:15)
[2022-08-28] MEDS: Thiamine 100 MG TAB PO SCH (21:16)
[2022-08-28] MEDS: Rosuvastatin 20 MG TAB PO SCH (21:16)
[2022-08-29] MEDS: Acetaminophen/Codeine 30-300mg Tablet PO SCH ×5 (00:37→23:38)
[2022-08-29] MEDS: Ipratropium/Albuterol 3 ML NEB NEB SCH ×2 (07:22→12:39)
[2022-08-29] MEDS: metFORMIN 500 MG TAB PO SCH ×4 (07:33→23:17)
[2022-08-29] MEDS: Pregabalin 50 MG CAP PO SCH ×2 (09:42→23:16)
[2022-08-29] MEDS: QUEtiapine 100 MG TAB PO SCH ×2 (09:43→23:15)
[2022-08-29] MEDS: Ascorbic Acid 500 mg Chewable Tablet PO SCH (09:44)
[2022-08-29] MEDS: DULoxetine 60 MG CAP PO SCH (09:44)
[2022-08-29] MEDS: Ferrous Sulfate 325 MG TAB PO SCH (09:45)
[2022-08-29] MEDS: Folic Acid 1 MG TAB PO SCH (09:45)
[2022-08-29] MEDS: Amlodipine 5 MG TAB PO SCH (09:45)
[2022-08-29] MEDS ORDERED: Ipratropium/Albuterol 3 ML NEB NEB PRN (13:15)
[2022-08-29] MEDS: traZODone HCl 150 MG TAB PO SCH (23:15)
[2022-08-29] MEDS: Rosuvastatin 20 MG TAB PO SCH (23:15)
[2022-08-29] MEDS: Cyclobenzaprine 10 MG TAB PO PRN (23:15)
[2022-08-29] MEDS: Thiamine 100 MG TAB PO SCH (23:16)
[2022-08-30] MEDS: Acetaminophen/Codeine 30-300mg Tablet PO SCH ×2 (06:33→12:04)
[2022-08-30] MEDS: DULoxetine 60 MG CAP PO SCH (07:51)
[2022-08-30] MEDS: metFORMIN 500 MG TAB PO SCH (07:51)
[2022-08-30] MEDS: Pregabalin 50 MG CAP PO SCH (07:52)
[2022-08-30] MEDS: Ascorbic Acid 500 mg Chewable Tablet PO SCH (07:52)
[2022-08-30] MEDS: Ferrous Sulfate 325 MG TAB PO SCH (07:52)
[2022-08-30] MEDS: Folic Acid 1 MG TAB PO SCH (07:52)
[2022-08-30] MEDS: Amlodipine 5 MG TAB PO SCH (07:52)
[2022-08-30] MEDS: QUEtiapine 100 MG TAB PO SCH (07:52)
[2022-08-30 11:45] VITALS: BP 113/71; TEMP 98.6
== END 2022-08-30 14:32 | disposition home or self-care (01) | DRG 200 ==
LOC: ERS 15:04 → SURG A 19:19
PROVIDERS: ADMIT Surgery; ATTEND Surgery
PROC: 0W9B30Z Drainage of Left Pleural Cavity with Drainage Device, Percutaneous Approach (ICD-10-PCS; principal; 2022-08-25)
DX: S27.2XXA Traumatic hemopneumothorax, initial encounter (principal); J90 Pleural effusion, not elsewhere classified; S22.050A Wedge compression fracture of T5-T6 vertebra, initial encounter for closed fracture; S22.42XA Multiple fractures of ribs, left side, initial encounter for closed fracture; W18.30XA Fall on same level, unspecified, initial encounter; E11.9 Type 2 diabetes mellitus without complications; K21.9 Gastro-esophageal reflux disease without esophagitis; F31.9 Bipolar disorder, unspecified; M54.2 Cervicalgia; J42 Unspecified chronic bronchitis; Z79.82 Long term (current) use of aspirin; Z88.6 Allergy status to analgesic agent; Z79.899 Other long term (current) drug therapy; Z79.84 Long term (current) use of oral hypoglycemic drugs; I25.2 Old myocardial infarction; Z90.49 Acquired absence of other specified parts of digestive tract; Z90.710 Acquired absence of both cervix and uterus; Z98.84 Bariatric surgery status
CPT/HCPCS: 36415; 36416; 70450; 71045; 71046; 71260; 72125; 74177; 80048; 80053; 81001; 85025; 85610; 85730; 86850; 86900; 86901; 94640; 96374; 96375; G0390; J1650; J1885; J2001; J2270; J2272; J2405; J7050; J7620; Q9967